=== PATIENT | female | born 1990 ===

== ENCOUNTER → 2019-09-08 | Outpatient (CLI) | payer OTHER ==
[2019-09-08 14:08] LABS: Protein, Urine Quantitative 30.7 mg/dL (0.0-11.9)
== END | disposition home or self-care (01) ==
LOC: LAB SHORT 06:48 → LAB 06:48
PROVIDERS: Obstetrics & Gynecology
DX: R03.0 Elevated blood-pressure reading, without diagnosis of hypertension (principal)
CPT/HCPCS: 81050; 84156

== ENCOUNTER 2019-10-20 10:40 | Inpatient (IN) | payer OTHER ==
[~2019-10-20] VITALS: Ht 154.9 cm; Wt 135.0 kg
[2019-10-20] MEDS ORDERED: CYCL10 PO (11:02)
[2019-10-20] MEDS ORDERED: PRENATAL TABLE1 EAC2 PO (11:02)
[2019-10-20] MEDS ORDERED: FAMO10 PO (11:03)
[2019-10-20 12:27] LABS: BASOPHILS ABSOLUTE AUTO 0.04 K/mm3 (0.00-0.23); BASOPHILS PERCENT AUTO 0 % (0-2); EOSINOPHILS ABSOLUTE AUTO 0.08 K/mm3 (0.00-0.68); EOSINOPHILS PERCENT AUTO 1 % (0-6); Hematocrit 35.7 % (33.0-51.0); IMMATURE GRAN ABSOLUTE AUTO 0.09 K/mm3 (0.00-0.10); IMMATURE GRAN PERCENT AUTO 1 % (0-1); LYMPHOCYTES ABSOLUTE AUTO 2.39 K/mm3 (0.84-5.20); LYMPHOCYTES PERCENT AUTO 17 % (21-46); MONOCYTES ABSOLUTE AUTO 0.89 K/mm3 (0.16-1.47); MONOCYTES PERCENT AUTO 6 % (4-13); Mean Corpuscular HGB 30.1 pg (26.0-34.0); Mean Corpuscular HGB Conc 33.6 g/dL (31.5-36.5); Mean Corpuscular Volume 90 fL (80-100); Mean Platelet Volume 10.7 fL (9.1-12.4); NEUTROPHILS ABSOLUTE AUTO 10.31 K/mm3 (1.96-9.15); NEUTROPHILS PERCENT AUTO 75 % (41-73); Platelet Count 299 K/mm3 (150-400); RDW Standard Deviation 42.5 fL (35.1-46.3); Red Blood Cell Count 3.99 M/mm3 (3.80-5.20)
[2019-10-20 14:18] LABS: PCO2 Cord - Venous 61.6 mmHg (40-50); PO2 Cord - Venous 18.1 mmHg (28-32); pH Umbilical Cord - Venous 7.18 (7.26-7.35)
[2019-10-20 14:20] LABS: PCO2 Cord - Arterial 81.1 mmHg (40-50); pH Cord - Arterial 7.08 (7.28-7.35)
[2019-10-20 14:21] LABS: PO2 Cord - Arterial < 13 mmHg (16-20)
--- NOTE | 2019-10-20 16:51 | NUR ---
PT C/O PAIN GETTING WORST MEDICATED WITH SECOND DOSE OF ROXICODONE 5MG PO
--- NOTE | 2019-10-20 18:57 | NUR ---
PT CRYING UNCONTROLABLE AFTER FUNDAL MASSAGE, HAVING PAIN CONTROL ISSUES STATES SHE TAKE GABAPENTON AT HOME FOR CHRONIC PAIN, PERICARE DONE PATIENT EXTREMELY UNCOMFORTABLE FENTANYL 50MCG IV GIVEN
--- NOTE | 2019-10-20 19:06 | NUR ---
PT FEELING BETTER TALKING WITH SON ON PHONE RATES PAIN 4/10 IN ROOM ASSISTING WITH SUPPORT
--- NOTE | 2019-10-20 19:23 | NUR ---
REPT TO Katiana CASH RN
[2019-10-21 05:13] LABS: Hematocrit 36.3 % (33.0-51.0); Hemoglobin 12.2 g/dL (11.5-16.0); Mean Corpuscular HGB 30.3 pg (26.0-34.0); Mean Corpuscular HGB Conc 33.6 g/dL (31.5-36.5); Mean Corpuscular Volume 90 fL (80-100); Mean Platelet Volume 10.8 fL (9.1-12.4); Platelet Count 259 K/mm3 (150-400); RDW Coefficient Variation 13.1 % (11.7-14.2); RDW Standard Deviation 42.5 fL (35.1-46.3); Red Blood Cell Count 4.02 M/mm3 (3.80-5.20); White Blood Cell Count 17.33 K/mm3 (4.00-11.30)
--- NOTE | 2019-10-21 17:03 | NUR ---
report from kvng bhatia. will assume care of pt at this time. brought dinner to pt. and she is difficult to arouse. I asked her when baby ate last and if she wanted to breastfeed and she said no that she wants us to take the baby and feed her a bottle.
--- NOTE | 2019-10-21 17:50 | NUR ---
mother awake and holding now and bonding appropriately. I told pt we needed to get her up to get her showered and she is refusing at this time stating that she needs to get her for personal soap prior to showering. i offered our hospital soap and she does not want to use it at this time. I told her she needed to call her and we needed to get her up to shower by retail shift supervisor.
--- NOTE | 2019-10-21 19:00 | NUR ---
up to shower. voided x1. complaining of r sided burning pain but states simethicone has helped with shoulder referred pain. will take medipore dressing off after shower. in room helping her get cleaned up.
--- NOTE | 2019-10-21 19:23 | NUR ---
report to otis lorenzo rn who will assume care of pt.
--- NOTE | 2019-10-22 07:41 | NUR ---
PT UNSURE IF SHE HAS PASSED GAS.
--- NOTE | 2019-10-22 10:00 | NUR ---
CPS WORKER, LADONNA, AT BEDSIDE TALKING WITH PT.
--- NOTE | 2019-10-22 10:53 | NUR ---
10/22/19 1053 Jennifer Ely VERIFICATIONS: EDIT CHART.
--- NOTE | 2019-10-22 14:32 | NUR ---
Assumed care from Clyde Pitt RN.
[2019-10-22] MEDS ORDERED: HYDMOR2 PO (14:59)
--- NOTE | 2019-10-22 16:35 | NUR ---
No acute changes since assuming care. Pt denies additional questions or concerns. Pt d/c'd home ambulatory to care of .
== END 2019-10-22 16:35 | disposition home or self-care (01) | DRG 788 ==
LOC: BC 10:40
PROVIDERS: ADMIT Obstetrics & Gynecology
PROC: 10D00Z1 Extraction of Products of Conception, Low, Open Approach (ICD-10-PCS; principal; 2019-10-20 11:30)
DX: O34.211 Maternal care for low transverse scar from previous cesarean delivery (principal); Z37.0 Single live birth; Z3A.38 38 weeks gestation of pregnancy; O99.212 Obesity complicating pregnancy, second trimester; E66.9 Obesity, unspecified
CPT/HCPCS: 36415; 82803; 85025; 85027; 86850; 86900; 86901; C1765; J0690; J2001; J2370; J2405; J2590; J2765; J3010; J7120; U0002